=== PATIENT | male | born 1970 | race Caucasian/White ===

== ENCOUNTER → 2024-02-25 12:48 | Outpatient (REF) | payer OTHER, SELFPAY | LOC: RAD 12:48 | PROVIDERS: ATTENDING PHYSICIAN Internal Medicine Geriatric Medicine | DX: R19.7 Diarrhea, unspecified (principal); R30.0 Dysuria; Z00.00 Encounter for general adult medical examination without abnormal findings; R09.89 Other specified symptoms and signs involving the circulatory and respiratory systems; E78.2 Mixed hyperlipidemia; G44.209 Tension-type headache, unspecified, not intractable; N20.0 Calculus of kidney; M77.8 Other enthesopathies, not elsewhere classified; R31.9 Hematuria, unspecified; Z13.31 Encounter for screening for depression | CPT/HCPCS: 74177; Q9967 ==

== ENCOUNTER → 2024-08-18 11:52 | Outpatient (REF) | payer OTHER, SELFPAY | LOC: RAD 11:52 | PROVIDERS: ATTENDING PHYSICIAN Nurse Practitioner Family | DX: R03.0 Elevated blood-pressure reading, without diagnosis of hypertension (principal) | CPT/HCPCS: 93005 ==